=== PATIENT | male | born 1950 | race Caucasian/White ===

== ENCOUNTER → 2019-12-25 | Outpatient (CLI) | payer MEDICARE, BC ==
[~2019-12-25] MED LIST: DABI150C PO; LISI5TAB7 PO; METO25TA35 PO; REGADENOSON 0.4 MG/5 ML SYRINGE ONE
== END | disposition home or self-care (01) ==
LOC: CFH 12:00
PROVIDERS: ATTEND Registered Nurse
DX: I48.91 Unspecified atrial fibrillation (principal)
CPT/HCPCS: 78452; 93017; A9502; J2785

== ENCOUNTER → 2019-12-29 | Outpatient (CLI) | payer MEDICARE, BC ==
[~2019-12-29] MED LIST changes: -REGADENOSON 0.4 MG/5 ML SYRINGE ONE
[2019-12-29 10:50] LABS: BASOPHILS % (AUTO) 1 % (0-1); EOSINOPHILS % (AUTO) 1 % (1-7); LYMPHOCYTES % (AUTO) 30 % (22-44); MEAN CORPUSCULAR HEMOGLOBIN 29.5 pg (27.5-34.5); MEAN CORPUSCULAR HGB CONC 32.7 g/dL (33.2-36.2); MEAN PLATELET VOLUME 8.7 fL (7.4-10.4); MONOCYTES % (AUTO) 10 % (2-9); NEUTROPHILS % (AUTO) 58 % (42-75); PLATELET COUNT 243 x10^3/uL (130-400); RED BLOOD COUNT 5.33 x10^6/uL (4.38-5.82); RED CELL DISTRIBUTION WIDTH 13.6 % (9.4-14.8)
[2019-12-29 11:00] LABS: ANION GAP 5 mmol/L (5-15); CALCIUM 9.1 mg/dL (8.5-10.1); CHLORIDE 111 mmol/L (98-107); CREATININE 1.68 mg/dL (0.7-1.3); MD NO
== END | disposition home or self-care (01) ==
LOC: LAB 10:34
PROVIDERS: ATTEND Nurse Practitioner Psychiatric/Mental Health
DX: I48.91 Unspecified atrial fibrillation (principal); N18.30 Chronic kidney disease, stage 3 unspecified
CPT/HCPCS: 36415; 80048; 85025

== ENCOUNTER → 2020-01-08 | Outpatient (CLI) | payer MEDICARE, BC | END | disposition home or self-care (01) | LOC: CVU 07:33 | PROVIDERS: ATTEND Registered Nurse | DX: I34.0 Nonrheumatic mitral (valve) insufficiency (principal); I48.91 Unspecified atrial fibrillation; I11.9 Hypertensive heart disease without heart failure | CPT/HCPCS: 93306 ==

== ENCOUNTER → 2020-03-11 | Outpatient (CLI) | payer MEDICARE, BC ==
[~2020-03-11] MED LIST changes: +OMNIPAQUE 350 MG/ML, 150 ML BOTTLE ONE
== END | disposition home or self-care (01) ==
LOC: CFH 09:57
PROVIDERS: ATTEND Internal Medicine Clinical Cardiac Electrophysiology
DX: Z01.818 Encounter for other preprocedural examination (principal); Z13.6 Encounter for screening for cardiovascular disorders; I48.91 Unspecified atrial fibrillation; Z20.822 Contact with and (suspected) exposure to COVID-19
CPT/HCPCS: 71046; 75572; 82565; 87635; Q9967

== ENCOUNTER 2020-03-15 06:01 | Observation (INO) | payer MEDICARE, BC ==
[~2020-03-15] VITALS: Ht 190.5 cm; Wt 102.0 kg
[~2020-03-15 06:01] MED LIST changes: -OMNIPAQUE 350 MG/ML, 150 ML BOTTLE ONE
[2020-03-15] MEDS ORDERED: SODIUM CHLORIDE 0.9% 1,000 ML IV SCH (06:30)
[2020-03-15] MEDS ORDERED: SODIUM CHLORIDE 0.9% 1,000 ML IV ONE (06:30)
[2020-03-15] MEDS ORDERED: APIX5TAB PO (06:40)
[2020-03-15 06:44] VITALS: BP 121/87
[2020-03-15] MEDS ORDERED: FENTANYL PF 100 MCG/2ML ONE (07:33)
[2020-03-15] MEDS ORDERED: HEPARIN 1,000 UNITS/ML, 10ML ONE ×4 (07:38→09:54)
[2020-03-15] MEDS ORDERED: LABETALOL 5MG/ML, 20ML IV PRN (08:00)
[2020-03-15] MEDS ORDERED: ACETAMINOPHEN 325 MG TABLET PO PRN (08:00)
[2020-03-15] MEDS ORDERED: EPHEDRINE 50 MG/ML, 1ML IVPush PRN (08:00)
[2020-03-15] MEDS ORDERED: HYDROmorphone 1 MG/ML, 1ML INJ IVPush PRN (08:00)
[2020-03-15] MEDS ORDERED: PROMETHAZINE 25 MG/ML, 1ML IVPush PRN (08:00)
[2020-03-15] MEDS ORDERED: OXYcodone 5 MG/5 ML ORAL.SOL UDC PO PRN (08:00)
[2020-03-15] MEDS ORDERED: ONDANSETRON 2MG/ML, 2ML IVPush PRN ×2 (08:00→21:30)
[2020-03-15] MEDS ORDERED: FENTANYL PF 100 MCG/2ML IV PRN (08:00)
[2020-03-15] MEDS ORDERED: hydrALAzine 20 MG/ML, 1ML IV PRN (08:00)
[2020-03-15] MEDS ORDERED: LIDOCAINE 2%, 20ML ONE (08:03)
[2020-03-15] MEDS ORDERED: PROPOFOL 10 MG/ML, 20ML ONE (08:35)
[2020-03-15] MEDS ORDERED: PHENYLEPHRINE 10 MG/ML ONE (08:35)
[2020-03-15] MEDS ORDERED: LIDOCAINE-MPF 2% ,5ML ONE (08:35)
[2020-03-15] MEDS ORDERED: SUCCINYLCHOLINE 20 MG/ML, 10ML ONE (08:35)
[2020-03-15] MEDS ORDERED: DEXAMETHASONE 4 MG/ML, 5ML ONE (08:35)
[2020-03-15] MEDS ORDERED: SUGAMMADEX 200 MG/2 ML IVPush ONE (08:35)
[2020-03-15] MEDS ORDERED: ROCURONIUM 10MG/ML,5ML ONE ×3 (08:35→12:24)
[2020-03-15] MEDS ORDERED: ONDANSETRON 2MG/ML, 2ML ONE ×2 (08:35→13:08)
[2020-03-15] MEDS ORDERED: PROMETHAZINE 25 MG/ML, 1ML ONE (13:25)
[2020-03-15] MEDS ORDERED: APIXABAN 5 MG TABLET ONE (13:29)
[2020-03-15] MEDS ORDERED: PANTOPRAZOLE 20MG TABLET PO ONE (13:30)
[2020-03-15 15:27] VITALS: BP 96/65
[2020-03-15] MEDS: SOTALOL 80MG TABLET PO SCH (18:07)
[2020-03-15 20:26] VITALS: BP 104/72
[2020-03-15] MEDS: COLCHICINE 0.6 MG CAPSULE PO SCH (20:47)
[2020-03-15] MEDS ORDERED: APIXABAN 5 MG TABLET PO SCH (21:00)
[2020-03-15] MEDS: APIXABAN 5 MG TABLET PO SCH (21:37)
[2020-03-16 01:07] VITALS: BP 102/70
[2020-03-16] MEDS: SOTALOL 80MG TABLET PO SCH ×2 (06:03→18:23)
[2020-03-16 08:01] VITALS: BP 117/75
[2020-03-16] MEDS: COLCHICINE 0.6 MG CAPSULE PO SCH ×2 (08:34→20:47)
[2020-03-16] MEDS: LISINOPRIL 5 MG TABLET PO SCH (08:34)
[2020-03-16] MEDS: APIXABAN 5 MG TABLET PO SCH ×2 (08:34→20:47)
[2020-03-16 12:55] VITALS: BP 115/76
[2020-03-16 20:58] VITALS: BP 116/77
[2020-03-17 01:24] VITALS: BP 120/76
[2020-03-17 06:00] LABS: BASOPHILS % (AUTO) 0 % (0-1); EOSINOPHILS % (AUTO) 1 % (1-7); LYMPHOCYTES % (AUTO) 23 % (22-44); MEAN CORPUSCULAR HEMOGLOBIN 30.7 pg (27.5-34.5); MEAN CORPUSCULAR HGB CONC 33.4 g/dL (33.2-36.2); MEAN PLATELET VOLUME 9.1 fL (7.4-10.4); MONOCYTES % (AUTO) 10 % (2-9); NEUTROPHILS % (AUTO) 67 % (42-75); PLATELET COUNT 184 x10^3/uL (130-400); RED BLOOD COUNT 4.15 x10^6/uL (4.38-5.82); RED CELL DISTRIBUTION WIDTH 14.1 % (9.4-14.8)
[2020-03-17 06:04] LABS: ANION GAP 6 mmol/L (5-15); CALCIUM 8.5 mg/dL (8.5-10.1); CHLORIDE 115 mmol/L (98-107); CREATININE 1.62 mg/dL (0.7-1.3)
[2020-03-17] MEDS: SOTALOL 80MG TABLET PO SCH (06:08)
[2020-03-17 06:19] LABS: MD NO
[2020-03-17 08:32] VITALS: BP 105/74
[2020-03-17] MEDS: LISINOPRIL 5 MG TABLET PO SCH (08:40)
[2020-03-17] MEDS: COLCHICINE 0.6 MG CAPSULE PO SCH (08:40)
[2020-03-17] MEDS: APIXABAN 5 MG TABLET PO SCH (08:40)
[2020-03-17] MEDS ORDERED: SOTA80TA18 PO (10:32)
== END 2020-03-17 14:51 | disposition home or self-care (01) ==
LOC: CACL 06:01 → ORIP 13:07 → 5SO 14:49
PROVIDERS: ADMIT Internal Medicine Clinical Cardiac Electrophysiology; ATTEND Internal Medicine Clinical Cardiac Electrophysiology
DX: I48.11 Longstanding persistent atrial fibrillation (principal); I48.0 Paroxysmal atrial fibrillation; I10 Essential (primary) hypertension; I07.1 Rheumatic tricuspid insufficiency; D68.69 Other thrombophilia; I27.20 Pulmonary hypertension, unspecified; F10.10 Alcohol abuse, uncomplicated; Z79.01 Long term (current) use of anticoagulants; Z79.899 Other long term (current) drug therapy
CPT/HCPCS: 36415; 80048; 85025; 85347; 93005; 93308; 93312; 93321; 93325; 93613; 93656; 93657; 93662; 96374; C1730; C1732; C1759; C1766; C1893; C1894; G0378; J0330; J1100; J1644; J2370; J2405; J2550; J2704; J3010; J3490

== ENCOUNTER → 2020-04-18 | Outpatient (CLI) | payer MEDICARE, BC ==
[~2020-04-18] MED LIST changes: +APIX5TAB PO; +SOTA80TA18 PO
[2020-04-18 08:09] LABS: BASOPHILS % (AUTO) 1 % (0-1); EOSINOPHILS % (AUTO) 2 % (1-7); LYMPHOCYTES % (AUTO) 36 % (22-44); MD NO; MEAN CORPUSCULAR HEMOGLOBIN 30.1 pg (27.5-34.5); MEAN CORPUSCULAR HGB CONC 33.2 g/dL (33.2-36.2); MEAN PLATELET VOLUME 8.4 fL (7.4-10.4); MONOCYTES % (AUTO) 13 % (2-9); NEUTROPHILS % (AUTO) 47 % (42-75); PLATELET COUNT 230 x10^3/uL (130-400); RED BLOOD COUNT 5.01 x10^6/uL (4.38-5.82); RED CELL DISTRIBUTION WIDTH 13.1 % (9.4-14.8)
[2020-04-18 08:22] LABS: ANION GAP 4 mmol/L (5-15); CALCIUM 9.1 mg/dL (8.5-10.1); CHLORIDE 111 mmol/L (98-107); CREATININE 1.45 mg/dL (0.7-1.3)
== END | disposition home or self-care (01) ==
LOC: LAB 07:55
PROVIDERS: ATTEND Nurse Practitioner Psychiatric/Mental Health
DX: N18.30 Chronic kidney disease, stage 3 unspecified (principal); R60.0 Localized edema; Z85.46 Personal history of malignant neoplasm of prostate
CPT/HCPCS: 36415; 80048; 83880; 84153; 85025; G0103

== ENCOUNTER → 2020-06-17 | Outpatient (CLI) | payer MEDICARE, BC ==
[~2020-06-17] MED LIST changes: +LISI2.5T PO; +SOTA80TA PO; +TRAZ-175 PO
== END | disposition home or self-care (01) ==
LOC: STAR 13:35
PROVIDERS: ATTEND Urology
DX: Z01.818 Encounter for other preprocedural examination (principal); N35.016 Post-traumatic urethral stricture, male, overlapping sites; R00.1 Bradycardia, unspecified; R94.31 Abnormal electrocardiogram [ECG] [EKG]; Z20.822 Contact with and (suspected) exposure to COVID-19
CPT/HCPCS: 93005; U0003

== ENCOUNTER 2020-06-21 13:45 | Day surgery (SDC) | payer MEDICARE, BC ==
[~2020-06-21] VITALS: Ht 190.5 cm; Wt 99.7 kg
[~2020-06-21 13:45] MED LIST changes: +ROCURONIUM 10MG/ML,5ML ONE
[2020-06-21] MEDS ORDERED: CHLORHEXIDINE 15 ML UDC ONE (13:58)
[2020-06-21] MEDS ORDERED: LACTATED RINGERS 1,000 ML IV SCH (14:00)
[2020-06-21] MEDS ORDERED: CHLORHEXIDINE 15 ML UDC PO ONE (14:00)
[2020-06-21 14:06] VITALS: BP 146/86
[2020-06-21] MEDS ORDERED: MIDAZOLAM 1 MG/ML, 2ML ONE (16:11)
[2020-06-21] MEDS ORDERED: FENTANYL PF 100 MCG/2ML ONE (16:11)
[2020-06-21] MEDS ORDERED: OMNIPAQUE 350 MG/ML, 50 ML BOTTLE ONE (16:41)
[2020-06-21] MEDS ORDERED: PROPOFOL 10 MG/ML, 20ML ONE (16:42)
[2020-06-21] MEDS ORDERED: CEFAZOLIN 1,000 MG ONE (16:42)
[2020-06-21] MEDS ORDERED: DEXAMETHASONE 4 MG/ML, 1ML ONE (16:42)
[2020-06-21] MEDS ORDERED: ONDANSETRON 2MG/ML, 2ML ONE (16:42)
[2020-06-21] MEDS ORDERED: LABETALOL 5MG/ML, 20ML IV PRN (17:30)
[2020-06-21] MEDS ORDERED: HYDROmorphone 1 MG/ML, 1ML INJ IVPush PRN (17:30)
[2020-06-21] MEDS ORDERED: PROMETHAZINE 25 MG/ML, 1ML IVPush PRN (17:30)
[2020-06-21] MEDS ORDERED: PROMETHAZINE 25 MG SUPP PR PRN (17:30)
[2020-06-21] MEDS ORDERED: ONDANSETRON 2MG/ML, 2ML IVPush PRN (17:30)
[2020-06-21] MEDS ORDERED: HALOPERIDOL 5 MG/ML IV PRN (17:30)
[2020-06-21] MEDS ORDERED: OXYcodone 5 MG/5 ML ORAL.SOL UDC PO PRN (17:30)
[2020-06-21] MEDS ORDERED: FENTANYL PF 100 MCG/2ML IV PRN (17:30)
[2020-06-21] MEDS ORDERED: ACETAMINOPHEN 325 MG TABLET PO PRN (17:30)
[2020-06-21] MEDS ORDERED: MEPERIDINE/PF 25MG/0.5ML IVPush PRN (17:30)
[2020-06-21] MEDS ORDERED: hydrALAzine 20 MG/ML, 1ML IV PRN (17:30)
[2020-06-21] MEDS ORDERED: LORazepam 2 MG/ML, 1ML IVPush PRN (17:30)
== END 2020-06-21 19:20 | disposition home or self-care (01) ==
LOC: OR 13:45
PROVIDERS: ATTEND Urology
DX: N35.011 Post-traumatic bulbous urethral stricture (principal); G47.33 Obstructive sleep apnea (adult) (pediatric); Z79.899 Other long term (current) drug therapy; Z90.79 Acquired absence of other genital organ(s)
CPT/HCPCS: 51610; 52000; 74450; C1758; C1769; J0690; J1100; J2250; J2405; J2704; J3010; J7120; Q9967; 74420